=== PATIENT | male | born 1950 | race African-American/Black ===

== ENCOUNTER 2018-08-05 07:19 | Day surgery (SDC) | payer MEDICARE ==
[~2018-08-05] VITALS: Ht 165.1 cm; Wt 72.6 kg
--- NOTE | ~2018-08-05 | OP ---
PATIENT NAME: DEB ANN MEDICAL RECORD: [id number] :50 LOCATION:[facility] ADMISSION DATE: SURGEON: FILIBERTO LIRA MD DATE OF OPERATION: 08/05/2018 REFERRED BY: Dr. Deion Mcgill and Luigi Toledo APRN PREOPERATIVE DIAGNOSES: Chronic kidney disease stage V, diabetes, and essential hypertension. POSTOPERATIVE DIAGNOSES: Chronic kidney disease stage V, diabetes, and essential hypertension. OPERATION PERFORMED: Creation of a right wrist radial artery to cephalic vein AV fistula. SURGEON: Filiberto Lira MD ANESTHESIA: Regional nerve block and general with LMA per IT COMPLIANCE ANALYST. PREOPERATIVE NOTE: Mr. Ann is a very nice 68-year-old -[place] male patient with worsening chronic renal impairment who is likely to require dialysis soon. He was referred to me by Dr. Mcgill and Ms. Luigi Toledo APRN for surgery to provide dialysis access. DESCRIPTION OF PROCEDURE: Under regional nerve block plus general anesthesia with an LMA per IT COMPLIANCE ANALYST, the patient was placed in supine position and the right upper extremity was prepped and draped in a sterile manner. A Gabriela drain was used as a venous tourniquet and nitroglycerin ointment was applied to the intact skin of the arm and forearm. Ultrasound examination demonstrated a very nice 5-mm diameter median cubital vein and a nice cephalic vein and median antebrachial vein in the forearm and a minimally calcified 3.5-4 mm radial artery at the wrist. I elected for the wrist fistula. I made a longitudinal incision and exposed the radial artery and divided small branches with electrocautery and controlled it proximally and distally with doubly looped Silastic tapes. A cephalic vein was dissected, it was treated with topical papaverine. One tributary was divided between Hemoclips and the vein was treated with topical papaverine several times. The vein was ligated with 3-0 Vicryl distally and transected and bevelled. It was then flushed and dilated with heparinized saline and prepared for anastomosis. The artery was opened for a length of about 8-mm. The artery was flushed proximally and distally with heparinized saline and the vein was sutured to the artery, end-to-side, urm-fx-zjqo-to-side of artery with running 7-0 Prolene. When completed and the occluding Silastic loops were released, there was no hemorrhage or bleeding at the suture line and excellent pulsatile continuous flow developed instantaneously within the fistula. This was confirmed by Doppler examination, which demonstrated a continuous pulsatile flow signal in the radial artery and in the fistula. The wound was irrigated with saline and hemostasis assured with some minimal additional use of a electrocautery. The wound was closed with interrupted inverted 3-0 Vicryl and then running intracuticular 4-0 Monocryl and Dermabond glue. It was dressed with Maxorb Ag, Tegaderm, and Cavilon skin prep. The patient was awakened and taken to the recovery room. Blood loss during the procedure was trivial and unreplaced. Sponges, instruments, and needles were accounted for. No drain was used and no surgical specimen was submitted for histopathology. OPERATIVE REPORT [id number] DEB ANN PLAN: The patient will go home as an outpatient today and return to see me in my office within the next 2 weeks. He can leave the original operative dressing intact and keep it clean and dry or if he needs he can change it simply replacing it with a clean, dry gauze dressing. He is given a prescription for 14 tablets of [place] 5/325 to take 1 p.o. every 4 hours p.r.n. pain and in general he is to resume activities and a normal renal diabetic diet and a same medications. He is placed in a sling to be worn until his neuromuscular function returns as his nerve block wears off. He is instructed not to use the sling after tomorrow. TRANSINT:[id number] Voice Confirmation ID: [id number] DOCUMENT ID: [id number] FILIBERTO LIRA MD CC: LUIGI TOLEDO and DEION MCGILL MD [id number] DICTATION DATE: 08/05/18 1253 BATHROOM TILING PROFESSIONAL: 08/05/18 1409 [facility] 08/05/18 [facility] [address] [place] [address]
[2018-08-05 07:51] LABS: BASOPHILS 0.2 % (0-2); EOSINOPHILS 0.5 % (0-7); HEMOGLOBIN 9.8 g/dL (13.5-17.5); IMMATURE GRANULOCYTES 0.2 % (0-5); LYMPHOCYTES 17.8 % (15-50); MCH 25.5 pg (26.0-34.0); MCHC 32.7 g/dL (31.0-37.0); MCV 77.9 fL (80.0-100.0); MONOCYTES 7.6 % (2-11); NEUTROPHILS 73.7 % (40-80); PLATELET COUNT 286 10x3/uL (130-400); RBC 3.85 10x6/uL (4.20-6.10); RDW 19.6 % (11.5-14.5); WBC 6.2 10x3/uL (4.8-10.8)
[2018-08-05 08:00] LABS: ANION GAP 18.6 mmol/L (8-16); CALCIUM 8.4 mg/dL (8.5-10.1); CARBON DIOXIDE 18.2 mmol/L (21.0-32.0); CREATININE - SERUM 3.5 mg/dL (0.6-1.3); POTASSIUM - SERUM 3.8 mmol/L (3.5-5.1)
[2018-08-05 08:25] LABS: PROTIME 12.7 SECONDS (11.6-15.0)
[2018-08-05] MEDS ORDERED: NORMODYNE / TR200 MG PO (08:26)
[2018-08-05] MEDS ORDERED: ZYLOPRIM100 MG PO (08:27)
[2018-08-05] MEDS ORDERED: FUROSEMIDE20 MG PO (08:28)
[2018-08-05] MEDS ORDERED: SODIUM BICARBO325 MG PO (08:28)
[2018-08-05] MEDS ORDERED: PROTONIX40 MG PO (08:29)
[2018-08-05] MEDS ORDERED: COZAAR100 MG PO (08:29)
[2018-08-05] MEDS ORDERED: ADALAT CC90 MG PO (08:29)
[2018-08-05] MEDS ORDERED: FERROUS SULFAT140 MG PO (08:32)
[2018-08-05] MEDS ORDERED: LANTUS INSULIN10 ML SC (08:34)
[2018-08-05 08:39] VITALS: BP 169/82; Ht 165.1 cm; Wt 72.6 kg
[2018-08-05] MEDS ORDERED: HYDROCODON-ACE1 EAC7 PO (12:37)
--- NOTE | 2018-08-05 14:40 | NUR ---
PT DC INSTRUCTIONS REVIEWED AT THIS TIME, PT VERBALIZES UNDERSTANDING. PT IV REMOVED AT THIS TIME, NO REDNESS OR SWELLING NOTED AT SITE.
--- NOTE | 2018-08-05 14:56 | NUR ---
PT LEAVING OPS AT THIS TIME VIA WC.
== END 2018-08-05 14:40 | disposition home or self-care (01) ==
LOC: D.OPS 07:19
PROVIDERS: Surgery; ATTEND Internal Medicine Nephrology
DX: E11.22 Type 2 diabetes mellitus with diabetic chronic kidney disease (principal); I12.0 Hypertensive chronic kidney disease with stage 5 chronic kidney disease or end stage renal disease; N18.5 Chronic kidney disease, stage 5; Z01.812 Encounter for preprocedural laboratory examination

== ENCOUNTER 2019-07-07 07:31 | Day surgery (SDC) | payer MEDICARE ==
[~2019-07-07] VITALS: Ht 170.2 cm; Wt 72.6 kg
--- NOTE | ~2019-07-07 | OP ---
PATIENT NAME: DEB ANN MEDICAL RECORD: [id number] :50 LOCATION:[facility] ADMISSION DATE: SURGEON: FILIBERTO LIRA MD DATE OF OPERATION: 07/07/2019 REFERRING PHYSICIAN: Kathy Cole DO PREOPERATIVE NOTE: Mr. Ann is a 69-year-old -[place] male patient with end-stage renal disease, on chronic hemodialysis, presently dialyzing with a right internal jugular tunneled dialysis catheter. His home is [place], [place]. I do not know which dialysis unit, perhaps [facility]. He has dialyzed for significant period of time with a right radiocephalic wrist AV fistula. He has had episodes of thrombosis of recurring frequency and his AV fistula is now thrombosed. He was considered potentially candidate for a brachiocephalic AV fistula in the upper arm and really is brought to the hospital today and taken to the operating room with plans to perform if possible a fistulogram or venogram. Intraoperative ultrasound and probably construction of a new fistula. If necessary, we will ligate a forearm fistula if there is any remaining patency. Under general anesthesia, the patient was prepped and draped in sterile manner. I examined him with Duplex ultrasound and found that there was no flow in the fistula, which was quite widely thrombosed with thrombus extending into the cephalic vein up into the distal third of the upper arm, so that there really was not a proper situation for brachiocephalic AV fistula creation today at least, perhaps in the future this might be done. The thrombus on ultrasound could be seen into the perforating vein communicating with the deep venous system, which as had been seen preoperatively was the primary runoff from the fistula. The basilic vein was dilated and visibly prominent in the forearm and around the elbow and on ultrasound, the basilic vein is patent. There was a large proximal brachial artery and proximal basilic vein and brachial vein as well. I thought at first that we might be able to construct a forearm AV loop graft and made 2 incisions at about the level of the antecubital space to expose 2 large tributaries of the basilic system. These vessels went into intense spasm which was not relieved with nitroglycerin and topical papaverine and the veins in the forearm were just too hostile to consider a graft or trying to create a new AV fistula. I thought it would be better to go ahead and put an artificial or prosthetic graft in the patient in his upper arm, then try a brachial to translocated basilic vein fistula this evening as we would like to get the catheter out and shorten his catheter contact time. So, I opted at least for this evening to go ahead with an Artegraft loop in the right upper arm between the proximal brachial artery and proximal basilic vein. I did not do a fistulogram. I made a vertical incision on the upper medial aspect of the arm and exposed the proximal brachial artery and proximal basilic vein controlled the vessels and their branches and tributaries with Silastic loops and a few Hemoclips. The artery was occluded, opened, flushed proximally and distally with heparinized saline. No systemic heparinization or anticoagulation was used and Artegraft was prepared and bevelled at one end and then anastomosed to the artery end of graft to side of artery with running 6-0 Prolene after which with release of the occluding clamps and loops, there was excellent flow in the artery proximal and distal to the anastomosis and there was good pulsatile flow into the graft. The graft and arteries were again flushed with heparinized saline and the graft clamped. The graft was then placed in a subcutaneous tunnel with the aid of a OPERATIVE REPORT [id number] DEB ANN single distal small vertical incision is a counter incision and then the end of the graft brought back up to the basilic vein where it was shortened and bevelled and anastomosed end-to-side to the basilic. When that was completed and the occluding loops and clamps were released, excellent flow developed immediately in the new AV graft and the suture lines both were hemostatic. Doppler examination revealed excellent flow without any evidence of complications. The wounds were irrigated with Ancef/gentamicin solution and infiltrated with 0.25% Marcaine without epinephrine. The wounds were closed with interrupted inverted 3-0 Vicryl and running intracuticular 4-0 Stratafix and Dermabond glue and Maxorb AG. The wounds were dressed with Tegaderm and Cavilon skin prep and the patient was then awakened from his anesthetic and returned to the recovery room. PLAN: The patient should be able to begin using his new AV graft in 10-14 days. I will be seeing him back in my office and in about that time, I believe that if his graft works well for a week or two, he can be referred back for catheter removal. Again, today's procedure does not absolutely burn bridges for future potential brachial to translocated basilic vein, AV fistula, or even brachiocephalic AV fistula creation, although that is perhaps likely. Blood loss during the operation today was about 5 cc, was unreplaced. Sponges, instruments, and needles were accounted for. No drain was used and no surgical specimen was submitted for histopathology. The patient is given a prescription for [place] 5/325, 10 tablets. He can take 1 p.o. q.4 hours p.r.n. pain. TRANSINT:[id number] Voice Confirmation ID: [id number] DOCUMENT ID: [id number] FILIBERTO LIRA MD CC: AMITA BROTHERS, OLLIE ROSENTHAL and KATHY COLE DO [id number] DICTATION DATE: 07/07/191743 WOOD DOWEL MACHINE OPERATOR: 07/08/19 0353 [facility] 07/07/19 [facility] [address] [place] [address]
[~2019-07-07 07:31] MED LIST: ADALAT CC90 MG PO; COZAAR100 MG PO; FERROUS SULFAT140 MG PO; FUROSEMIDE20 MG PO; HYDROCODON-ACE1 EAC7 PO; LANTUS INSULIN10 ML SC; NORMODYNE / TR200 MG PO; PROTONIX40 MG PO; SODIUM BICARBO325 MG PO; ZYLOPRIM100 MG PO
[2019-07-07 07:53] LABS: ANION GAP 13.2 mmol/L (8-16); CALCIUM 8.1 mg/dL (8.5-10.1); CARBON DIOXIDE 28.8 mmol/L (21.0-32.0); CREATININE - SERUM 7.6 mg/dL (0.6-1.3)
[2019-07-07 07:59] LABS: INR 1.05 (0.85-1.17); PROTIME 13.7 SECONDS (11.6-15.0)
[2019-07-07 08:08] LABS: BASOPHILS 0.2 % (0-2); EOSINOPHILS 1.1 % (0-7); HEMATOCRIT 33.1 % (42.0-54.0); IMMATURE GRANULOCYTES 0.2 % (0-5); LYMPHOCYTES 11.7 % (15-50); MCHC 30.2 g/dL (31.0-37.0); MCV 89.2 fL (80.0-100.0); MEAN PLATELET VOLUME 8.8 fL (7.4-10.4); MONOCYTES 7.1 % (2-11); NEUTROPHILS 79.7 % (40-80); RBC 3.71 10x6/uL (4.20-6.10); RDW 15.5 % (11.5-14.5); WBC 6.6 10x3/uL (4.8-10.8)
[2019-07-07 08:19] LABS: PLATELET COUNT 368 10x3/uL (130-400)
[2019-07-07] MEDS ORDERED: CEREFOLIN TAB1 TAB PO (10:36)
[2019-07-07] MEDS ORDERED: ZOCOR20 MG PO (10:36)
[2019-07-07] MEDS ORDERED: HUMALOG 30100 UNITS/ SC (10:37)
[2019-07-07 10:49] VITALS: BP 134/61; Ht 170.2 cm; Wt 72.6 kg
[2019-07-07] MEDS ORDERED: HYDROCODON-ACE1 EAC7 PO (17:03)
--- NOTE | 2019-07-07 18:40 | NUR ---
DISCHARGE INSTRUCTIONS REVIEWED WITH PATIENT, DISCHARGED HOME VIA WHEELCHAIR TO PRIVATE VEHICLE TO ENTRANCE WHERE SPOUSE AND DAUGHTER WAITING IN CAR AT 1845
== END 2019-07-07 18:45 | disposition home or self-care (01) ==
LOC: D.OPS 07:31
PROVIDERS: ATTEND Surgery
DX: I12.0 Hypertensive chronic kidney disease with stage 5 chronic kidney disease or end stage renal disease (principal); E11.22 Type 2 diabetes mellitus with diabetic chronic kidney disease; N18.6 End stage renal disease; Z99.2 Dependence on renal dialysis; Z79.4 Long term (current) use of insulin; T82.868A Thrombosis due to vascular prosthetic devices, implants and grafts, initial encounter